=== PATIENT | male | born 1975 | race Caucasian/White ===

== ENCOUNTER 2020-08-20 10:39 | Emergency (ER) | payer SELFPAY ==
[~2020-08-20] VITALS: Ht 177.8 cm; Wt 72.5 kg
[2020-08-20 11:03] LABS: BASOPHILS % (AUTO) 0 % (0-10); EOSINOPHILS # (AUTO) 0.1 10^3/uL (0.0-0.3); EOSINOPHILS % (AUTO) 2 % (0-10); HEMATOCRIT 34 % (40-54); HEMOGLOBIN 12.4 G/DL (13.3-17.7); LYMPHOCYTES # (AUTO) 0.8 X 10^3 (1.0-4.0); LYMPHOCYTES % (AUTO) 17 % (12-44); MEAN CORPUSCULAR HEMOGLOBIN 30 PG (25-34); MEAN CORPUSCULAR HGB CONC 36 G/DL (32-36); MEAN CORPUSCULAR VOLUME 84 FL (80-99); MEAN PLATELET VOLUME 7.5 FL (7.4-10.4); MONOCYTES # (AUTO) 0.4 X 10^3 (0.0-1.0); MONOCYTES % (AUTO) 9 % (0-12); NEUTROPHILS # (AUTO) 3.2 X 10^3 (1.8-7.8); NEUTROPHILS % (AUTO) 71 % (42-75); PLATELET COUNT 246 10^3/uL (130-400); WHITE BLOOD COUNT 4.5 10^3/uL (4.3-11.0)
[2020-08-20 11:12] LABS: ALBUMIN 4.3 GM/DL (3.2-4.5); CHLORIDE 84 MMOL/L (98-107); POTASSIUM 4.6 MMOL/L (3.6-5.0)
[2020-08-20 11:14] LABS: GLUCOSE 95 MG/DL (70-105); TOTAL PROTEIN 7.3 GM/DL (6.4-8.2)
[2020-08-20 11:15] LABS: CARBON DIOXIDE 25 MMOL/L (21-32)
[2020-08-20 11:16] LABS: BILIRUBIN,TOTAL 0.5 MG/DL (0.1-1.0)
[2020-08-20 11:18] LABS: ALKALINE PHOSPHATASE 78 U/L (40-136); CREATININE SERUM 0.73 MG/DL (0.60-1.30); GFR ESTIMATED > 60
[2020-08-20 11:19] LABS: BUN/CREATININE RATIO 12
[2020-08-20 11:21] LABS: ALANINE AMINOTRANSFERASE 15 U/L (0-55)
[2020-08-20 11:22] LABS: LIPASE 66 U/L (8-78); SODIUM 118 MMOL/L (135-145)
[2020-08-20] MEDS ORDERED: NS IV 1000 ML 1,000 ML IV SCH (11:27)
[2020-08-20] MEDS ORDERED: FAMOTIDINE 20MG/2ML IV (PEPCID) IVP ONE (11:30)
[2020-08-20] MEDS ORDERED: LIDOCAINE 2% VISCOUS 15 ML UDC PO ONE (11:30)
[2020-08-20] MEDS ORDERED: ANTACID SUSP 30 ML UDC (MYLANTA) PO ONE (11:30)
[2020-08-20] MEDS ORDERED: ONDANSETRON 4 MG/2 ML (SDV) Z0FRAN IVP ONE (11:30)
[2020-08-20 11:41] LABS: TSH (THYROID ANALYZER) 0.89 UIU/ML (0.35-4.94)
--- NOTE | 2020-08-20 11:48 | ED General ---
General Chief Complaint: Respiratory Problems Stated Complaint: ABD PAIN / SOA Nursing Triage Note: Pt c/o SOB with exertion and at rest. Pt reports symptoms began 3-4 weeks ago. Pt reports being sent to ED for Na+ of 116. Nursing Sepsis Screen: No Definite Risk Source of Information: Patient, Other (Dr. Hanks) Exam Limitations: No Limitations History of Present Illness Date Seen by Provider: Aug 20, 2020 Time Seen by Provider: 10:43 Initial Comments This 44-year-old gentleman was directed to the emergency room from Dr. Hanks at the [facility] clinic due to sodium of 116 obtained on lab work yesterday. He has been complaining of 3-4 weeks of fatigue, shortness of breath, and upper abdominal pain with poor appetite. He denies cough, fever, nausea, vomiting, diarrhea, constipation, hematochezia, or melena. His pain stretches across the upper abdomen. He can eat small amounts but he states eating causes his "stomach to t urn". He was tested for COVID-19 on August 01 and that result was negative. He denies any alcohol or drug use. He is never had problems with hyponatremia in the past. Allergies and Home Medications Allergies Coded Allergies: No Known Drug Allergies (Unverified , 08/20/20) Home Medications Amlodipine Besylate 5 Mg Tablet, 5 MG PO DAILY Prescribed by: JERRELL BEGUM on 08/20/20 1547 Spironolactone 50 Mg Tablet, 50 MG PO DAILY Prescribed by: JERRELL BEGUM on 08/20/20 1547 Patient Home Medication List Home Medication List Reviewed: Yes Review of Systems Review of Systems Constitutional: see HPI EENTM: no symptoms reported Respiratory: see HPI Cardiovascular: no symptoms reported Gastrointestinal: see HPI Genitourinary: no symptoms reported Musculoskeletal: no symptoms reported Skin: no symptoms reported Psychiatric/Neurological: No Symptoms Reported Hematologic/Lymphatic: No Symptoms Reported Immunological/Allergic: no symptoms reported Past Ozixdph-Radsnj-Wvyfuw Hx Past Med/Social Hx: Reviewed Nursing Past Med/Soc Hx Patient Social History Alcohol Use: Past History Recreational Drug Use: No Smoking Status: Former Smoker 2nd Hand Smoke Exposure: No Recent Foreign Travel: No Contact w/Someone Who Travel: No Recent Infectious Disease Expo: No Recent Hopitalizations: No Seasonal Allergies Seasonal Allergies: No Past Medical History Surgeries: No Respiratory: No Cardiac: No Neurological: No Genitourinary: No Gastrointestinal: No Musculoskeletal: No Endocrine: No HEENT: No Cancer: No Psychosocial: No Integumentary: No Blood Disorders: No Physical Exam Vital Signs Vital Signs - First Documented 08/20/20 10:45 Temp 36.8 Pulse 77 Resp 24 B/P (MAP) 176/115 (135) Pulse Ox 100 O2 Delivery Room Air Capillary Refill : Less Than 3 Seconds Height, Weight, BMI Height: '" Weight: lbs. oz. kg; 22.00 BMI Method: General Appearance: No Apparent Distress, WD/WN, Thin HEENT: PERRL/EOMI, Normal ENT Inspection, Pharynx Normal Neck: Normal Inspection Respiratory: Lungs Clear, Normal Breath Sounds, No Accessory Muscle Use Cardiovascular: Regular Rate, Rhythm, No Edema, No Murmur Gastrointestinal: Normal Bowel Sounds, Soft, Tenderness (across the upper abdomen) Extremity: Normal Inspection, No Pedal Edema Neurologic/Psychiatric: Alert, Oriented x3, No Motor/Sensory Deficits, Normal Mood/Affect, business teacher II-XII Norm as Tested Skin: Normal Color, Warm/Dry Progress/Results/Core Measures Suspected Sepsis Recent Fever Within 48 Hours: No Infection Criteria Present: None New/Unexplained Altered Menta: No Sepsis Screen: No Definite Risk SIRS Temperature: Pulse: 77 Respiratory Rate: 24 Laboratory Tests 08/20/20 10:55: White Blood Count 4.5 Blood Pressure 176 /115 Mean: 135 Laboratory Tests 08/20/20 10:55: Creatinine 0.73, Platelet Count 246, Total Bilirubin 0.5 Results/Orders Lab Results Laboratory Tests Test 08/20/20 10:55 08/20/20 13:10 Range/Units White Blood Count 4.5 4.3-11.0 10^3/uL Red Blood Count 4.12 L 4.35-5.85 10^6/uL Hemoglobin 12.4 L 13.3-17.7 G/DL Hematocrit 34 L 40-54 % Mean Corpuscular Volume 84 80-99 FL Mean Corpuscular Hemoglobin 30 25-34 PG Mean Corpuscular Hemoglobin Concent 36 32-36 G/DL Red Cell Distribution Width 12.1 10.0-14.5 % Platelet Count 246 130-400 10^3/uL Mean Platelet Volume 7.5 7.4-10.4 FL Neutrophils (%) (Auto) 71 42-75 % Lymphocytes (%) (Auto) 17 12-44 % Monocytes (%) (Auto) 9 0-12 % Eosinophils (%) (Auto) 2 0-10 % Basophils (%) (Auto) 0 0-10 % Neutrophils # (Auto) 3.2 1.8-7.8 X 10^3 Lymphocytes # (Auto) 0.8 L 1.0-4.0 X 10^3 Monocytes # (Auto) 0.4 0.0-1.0 X 10^3 Eosinophils # (Auto) 0.1 0.0-0.3 10^3/uL Basophils # (Auto) 0.0 0.0-0.1 10^3/uL Sodium Level 118 *L 135-145 MMOL/L Potassium Level 4.6 3.6-5.0 MMOL/L Chloride Level 84 L 98-107 MMOL/L Carbon Dioxide Level 25 21-32 MMOL/L Anion Gap 9 5-14 MMOL/L Blood Urea Nitrogen 9 7-18 MG/DL Creatinine 0.73 0.60-1.30 MG/DL Estimat Glomerular Filtration Rate > 60 BUN/Creatinine Ratio 12 Glucose Level 95 70-105 MG/DL Calcium Level 9.0 8.5-10.1 MG/DL Corrected Calcium 8.8 8.5-10.1 MG/DL Magnesium Level 2.0 1.6-2.4 MG/DL Total Bilirubin 0.5 0.1-1.0 MG/DL Aspartate Amino Transf (AST/SGOT) 22 5-34 U/L Alanine Aminotransferase (ALT/SGPT) 15 0-55 U/L Alkaline Phosphatase 78 40-136 U/L C-Reactive Protein High Sensitivity 0.16 0.00-0.50 MG/DL Total Protein 7.3 6.4-8.2 GM/DL Albumin 4.3 3.2-4.5 GM/DL Lipase 66 8-78 U/L TSH [place] Testing 0.89 0.35-4.94 UIU/ML Serum Alcohol < 10 <10 MG/DL Urine Color YELLOW Urine Clarity CLEAR Urine pH 7.0 5-9 Urine Specific Nora <=1.005 1.016-1.022 Urine Protein NEGATIVE NEGATIVE Urine Glucose (UA) NEGATIVE NEGATIVE Urine Ketones NEGATIVE NEGATIVE Urine Nitrite NEGATIVE NEGATIVE Urine Bilirubin NEGATIVE NEGATIVE Urine Urobilinogen 0.2 < = 1.0 MG/DL Urine Leukocyte Esterase NEGATIVE NEGATIVE Urine RBC (Auto) NEGATIVE NEGATIVE Urine RBC NONE /HPF Urine WBC NONE /HPF Urine Squamous Epithelial Cells RARE /HPF Urine Crystals NONE /LPF Urine Amorphous Sediment MOD [place] URATES H /LPF Urine Bacteria TRACE /HPF Urine Casts NONE /LPF Urine Mucus NEGATIVE /LPF Urine Culture Indicated NO Urine Opiates Screen NEGATIVE NEGATIVE Urine Oxycodone Screen NEGATIVE NEGATIVE Urine Methadone Screen NEGATIVE NEGATIVE Urine Propoxyphene Screen NEGATIVE NEGATIVE Urine Barbiturates Screen NEGATIVE NEGATIVE Ur Tricyclic Antidepressants Screen NEGATIVE NEGATIVE Urine Phencyclidine Screen NEGATIVE NEGATIVE Urine Amphetamines Screen NEGATIVE NEGATIVE Urine Methamphetamines Screen NEGATIVE NEGATIVE Urine Benzodiazepines Screen NEGATIVE NEGATIVE Urine Cocaine Screen NEGATIVE NEGATIVE Urine Cannabinoids Screen NEGATIVE NEGATIVE My Orders Orders - JERRELL TALAVERA MD Chest 1 View, Ap/Pa Only (08/20/20 10:43) Alcohol (08/20/20 10:43) Cbc With Automated Diff (08/20/20 10:43) Comprehensive Metabolic Panel (08/20/20 10:43) Hs C Reactive Protein (08/20/20 10:43) Lipase (08/20/20 10:43) Magnesium (08/20/20 10:43) Thyroid Analyzer (08/20/20 10:43) Ua Culture If Indicated (08/20/20 10:43) Drug Screen Stat (Urine) (08/20/20 11:24) Ed Iv/Invasive Line Start (08/20/20 11:27) Ns Iv 1000 Ml (Sodium Chloride 0.9%) (08/20/20 11:27) Famotidine Injection (Pepcid Injection) (08/20/20 11:30) Ondansetron Injection (Zofran Injectio (08/20/20 11:30) Lidocaine 2% Viscous 15 Ml (Xylocaine Vi (08/20/20 11:30) Antacid Suspension (Mylanta Suspension (08/20/20 11:30) Ct Chest/Abdomen/Pelvis W (08/20/20 11:53) Iohexol Injection (Omnipaque 350 Mg/Ml 1 (08/20/20 12:15) Received Contrast (Hold Metformin- Contr (08/20/20 12:15) Ns (Ivpb) (Sodium Chloride 0.9% Ivpb Bag (08/20/20 12:15) Medications Given in ED Current Medications Medications Dose Ordered Sig/[place] Route Start Time Stop Time Status Last Admin Dose Admin Al Hydrox/Mg Hydrox/Simethicone 30 ml ONCE ONCE PO 08/20/20 11:30 08/20/20 11:31 DC 08/20/20 11:37 30 ML Famotidine 20 mg ONCE ONCE IVP 08/20/20 11:30 08/20/20 11:31 DC 08/20/20 11:38 20 MG Iohexol 100 ml ONCE ONCE IV 08/20/20 12:15 08/20/20 12:16 DC 08/20/20 12:48 100 ML Lidocaine HCl 15 ml ONCE ONCE PO 08/20/20 11:30 08/20/20 11:31 DC 08/20/20 11:37 15 ML Ondansetron HCl 4 mg ONCE ONCE IVP 08/20/20 11:30 08/20/20 11:31 DC 08/20/20 11:38 4 MG Sodium Chloride 100 ml ONCE ONCE IV 08/20/20 12:15 08/20/20 12:16 DC 08/20/20 12:48 80 ML Vital Signs/I&O 08/20/20 08/20/20 10:45 15:55 Temp 36.8 36.8 Pulse 77 77 Resp 24 24 B/P (MAP) 176/115 (135) 176/115 (135) Pulse Ox 100 100 O2 Delivery Room Air Room Air Capillary Refill : Less Than 3 Seconds Blood Pressure Mean: 135 Progress Note #1: Time: 11:49 Progress Note Labs were fairly unremarkable except for hyponatremia of 118. We will try a GI cocktail and Pepcid to treat his pain. If this does not resolve the pain, we will consider obtaining CT scan. Progress Note #2: Time: 11:52 Progress Note Chest x-ray and report were just reviewed. There is a masslike consolidation in the left hilar area. Given the patient's symptoms and hyponatremia, CT to further differentiate diagnosis is appropriate. Progress Note #3: Time: 15:02 Progress Note A large hilar mass was noted on the CT scan. This is suspicious for malignancy. I discussed the case with Dr. MATT and Dr. Stephens. Who concluded that the patient needs biopsy. This information was shared with Dr. Hanks and she will have the [facility] providers help coordinate appropriate referrals. In regard to the hyponatremia, this is likely a long-term process that is not causing him significant acute symptoms. We will not do any targeted treatment for hyponatremia at this time. Treating the mass is the correct approach to treating the hyponatremia. The hypertension will be treated with amlodipine and spironolactone. Spironolactone may also be helpful for treating the hyponatremia. Progress Note #4: Progress Note Patient reported that he has retinal surgery for retinal detachment scheduled on August 22. I contacted Dr. Mcdonald to update him on patient's status. He would like the patient to present at 08:00 on Saturday rather than 14:00 so that he can do a thorough exam and determine the source of the retinal detachment. It is possible that he could have an exudative metastatic lesion causing the retinal detachment. This needs to be sorted out before he can go to surgery. His appointment with Dr. Cassy Paulino will be on Saturday afternoon. This was all discussed with Dr. Hanks. Diagnostic Imaging Diagonstic Imaging: Xray Plain Films/CT/US/NM/MRI: chest Comments Chest x-ray viewed by me and report reviewed. See report below: NAME: COLTON MADERA [facility] REC#: [id number] PT STATUS: REG ER : 1975 PHYSICIAN: JERRELL TALAVERA MD ADMIT DATE: 08/20/20/ER Draft Date of Exam:08/20/20 CHEST 1 VIEW, AP/PA ONLY Indication: Shortness of breath Comparison: None available. Findings: Left perihilar heterogeneous consolidations and hilar fullness. There are also some patchy ill-defined nodular opacities in the periphery of the left midlung. No pleural effusion or pneumothorax. Impression: 1. Left perihilar masslike consolidation may be due to pneumonia. Advise either followup PA and lateral chest radiographs in 4 weeks after appropriate medical management versus a followup CT chest with IV contrast to assess for the possibility of a mass. Dictated on workstation # [id number] Dict: 08/20/20 1138 Trans: 08/20/20 1145 CV [id number] Interpreted by: DINA PEREZ MD Diagonstic Imaging: CT Plain Films/CT/US/NM/MRI: chest, abdomen, pelvis Comments CT chest, abdomen and pelvis viewed by me and report reviewed. See report below: NAME: COLTON MADERA [facility] REC#: [id number] PT STATUS: REG ER : 1975 PHYSICIAN: JERRELL TALAVERA MD ADMIT DATE: 08/20/20/ER Signed Date of Exam:08/20/20 CT CHEST/ABDOMEN/PELVIS W PROCEDURE: CT chest, abdomen, and pelvis with contrast. TECHNIQUE: Multiple contiguous axial images were obtained through the chest, abdomen, and pelvis after the administration of intravenous contrast. Auto Exposure Controls were utilized during the CT exam to meet ALARA standards for radiation dose reduction. INDICATION: Chest mass. COMPARISON: Plain film same day. FINDINGS: CT chest: Large left hilar mass is identified with irregular borders and encasement of the left mainstem bronchus and pulmonary arteries. Approximate measurement is 6.5 cm. There are parenchymal nodules in the left upper lobe. Postobstructive infiltrates are seen in the anterior left base. There is an enlarged subcarinal lymph node and pretracheal nodes. The subcarinal node measures approximately 2.5 cm in cross-section. There is a trace left-sided effusion. The right lung is clear. The heart, aorta, visualized pulmonary arteries are otherwise unremarkable. Osseous structures are age-appropriate. IMPRESSION: Large left mediastinal mass with satellite nodules lymphadenopathy post obstructive infiltrate concerning for neoplasm. CT ABDOMEN AND PELVIS: The gallbladder, solid organs, vascular structures and bowel are unremarkable. There is no free air or free fluid. Urinary bladder is grossly normal. There is no mesenteric or retroperitoneal lymphadenopathy. No inflammatory process is seen. The urinary bladder and prostate are grossly normal. Osseous structures are age-appropriate. IMPRESSION: 1. Negative CT abdomen and pelvis. The CT evidence for neoplasm or ascites is seen within the abdomen or pelvis. 2. Visualized adrenal glands are grossly unremarkable. Dictated by: Dictated on workstation # [id number] Dict: 08/20/20 1307 Trans: 08/20/20 1601 CV [id number] Interpreted by: BOOGIE KUHN Electronically signed by: BOOGIE KUHN 08/20/20 1601 Departure Impression Primary Impression: Mass of left lung Additional Impressions: Hyponatremia Hypertension Qualified Codes: I10 - Essential (primary) hypertension Disposition: HOME, SELF-CARE Condition: Stable Departure-Patient Inst. Decision time for Depature: 15:37 Referrals: NO,LOCAL PHYSICIAN (PCP/Family) Primary Care Physician Patient Instructions: High Blood Pressure (DC), Hyponatremia Add. Discharge Instructions: You have an appointment with Dr. Cassy Paulino at the [facility] clinic in [place] on Saturday at 2:00 p.m. Please call the clinic on Saturday or Saturday to confirm the appointment time and location. Please picker box operator at your blood pressure medication and start it today. Also try to limit your fluid intake to 1.5 L daily to improve your low sodium (hyponatremia). Dr. Mcdonald would like to see you at 8:00 on Saturday to start the process of your workup. Please do not eat or drink after 4:00 Saturday morning and preparation for possible surgery. Be sure to take your blood pressure medication Saturday. Call the emergency room and asked to speak with Dr. Talavera if you have any further questions or concerns. Return to the emergency room if you develop new or concerning problems. All discharge instructions reviewed with patient and/or family. Voiced un derstanding. Scripts Spironolactone (Spironolactone) 50 Mg Tablet 50 MG PO DAILY, #30 TAB Prov: JERRELL TALAVERA MD 08/20/20 Amlodipine Besylate (Amlodipine Besylate) 5 Mg Tablet 5 MG PO DAILY, #30 TAB Prov: JERRELL TALAVERA MD 08/20/20 Copy Copies To 1: JESSICA STEPHENS MD Copies To 2: CASSY PAUILNO MD, JOSHUA T MD Aug 20, 2020 11:48
[2020-08-20] MEDS ORDERED: HOLD METFORMIN - RECEIVED CONTRAST 20 ML VIAL IV SCH (12:15)
[2020-08-20] MEDS ORDERED: IOHEXOL 350 MG/ML 100 ML (OMNIPAQUE 350) VIAL IV ONE (12:15)
[2020-08-20] MEDS ORDERED: NS 100 ML (IVPB) BAG IV ONE (12:15)
--- NOTE | 2020-08-20 13:14 | Diagnostic Imaging Report ---
PROCEDURE: CT chest, abdomen, and pelvis with contrast. TECHNIQUE: Multiple contiguous axial images were obtained through the chest, abdomen, and pelvis after the administration of intravenous contrast. Auto Exposure Controls were utilized during the CT exam to meet ALARA standards for radiation dose reduction. INDICATION: Chest mass. COMPARISON: Plain film same day. FINDINGS: CT chest: Large left hilar mass is identified with irregular borders and encasement of the left mainstem bronchus and pulmonary arteries. Approximate measurement is 6.5 cm. There are parenchymal nodules in the left upper lobe. Postobstructive infiltrates are seen in the anterior left base. There is an enlarged subcarinal lymph node and pretracheal nodes. The subcarinal node measures approximately 2.5 cm in cross-section. There is a trace left-sided effusion. The right lung is clear. The heart, aorta, visualized pulmonary arteries are otherwise unremarkable. Osseous structures are age-appropriate. IMPRESSION: Large left mediastinal mass with satellite nodules lymphadenopathy post obstructive infiltrate concerning for neoplasm. CT ABDOMEN AND PELVIS: The gallbladder, solid organs, vascular structures and bowel are unremarkable. There is no free air or free fluid. Urinary bladder is grossly normal. There is no mesenteric or retroperitoneal lymphadenopathy. No inflammatory process is seen. The urinary bladder and prostate are grossly normal. Osseous structures are age-appropriate. IMPRESSION: 1. Negative CT abdomen and pelvis. The CT evidence for neoplasm or ascites is seen within the abdomen or pelvis. 2. Visualized adrenal glands are grossly unremarkable. Dictated by: Dictated on workstation # [id number]
[2020-08-20 13:19] LABS: BILIRUBIN,URINE NEGATIVE (NEGATIVE); CLARITY,URINE CLEAR; COLOR,URINE YELLOW; GLUCOSE, URINE (UA) NEGATIVE (NEGATIVE); KETONES,URINE NEGATIVE (NEGATIVE); LEUKOCYTE ESTERASE ,URINE NEGATIVE (NEGATIVE); NITRITE,URINE NEGATIVE (NEGATIVE); PROTEIN,URINE NEGATIVE (NEGATIVE)
[2020-08-20 13:27] LABS: AMORPHOUS SEDIMENT,UR MOD AMOR URATES /LPF; BACTERIA,URINE TRACE /HPF; SQUAMOUS EPITHELIAL CELL,UR RARE /HPF
[2020-08-20 13:30] LABS: AMPHETAMINE SCREEN, URINE NEGATIVE (NEGATIVE); BARBITURATE SCREEN URINE NEGATIVE (NEGATIVE); BENZODIAZEPINES SCREEN URINE NEGATIVE (NEGATIVE); CANNABINOID SCREEN, URINE NEGATIVE (NEGATIVE); COCAINE SCREEN URINE NEGATIVE (NEGATIVE); METHADONE STAT NEGATIVE (NEGATIVE); METHAMPHETAMINE SCREEN URINE S NEGATIVE (NEGATIVE); OPIATE SCREEN URINE NEGATIVE (NEGATIVE); OXYCODONE STAT NEGATIVE (NEGATIVE); PROPOXYPHENE STAT NEGATIVE (NEGATIVE); TRICYCLIC ANTIDEPRESSANTS SCRE NEGATIVE (NEGATIVE)
[2020-08-20] MEDS ORDERED: SPIR50TA4 PO (15:47)
[2020-08-20] MEDS ORDERED: AMLO5TAB9 PO (15:47)
[2020-08-20 15:55] VITALS: BP 176/115
== END 2020-08-20 15:55 | disposition home or self-care (01) ==
LOC: EDUNIT# 10:39 → ER 10:40
DX: R91.8 Other nonspecific abnormal finding of lung field (principal); E87.1 Hypo-osmolality and hyponatremia; I10 Essential (primary) hypertension; Z87.891 Personal history of nicotine dependence; Z20.828 Contact with and (suspected) exposure to other viral communicable diseases
CPT/HCPCS: 71045; 71260; 74177; 80053; 80306; 81000; 83690; 83735; 84443; 85025; 86141; 99284; G0480; 36415; 80320